=== PATIENT | female | born 1950 | race Caucasian/White ===

== ENCOUNTER → 2016-07-14 | Outpatient (CLI) | payer MEDICARE, OTHER ==
[2016-07-14 16:04] LABS: Blood Urea Nitrogen 18 mg/dL (7-17); Non-African American GFR(MDRD) >60 (>60 ml/min/1.73 sqM)
--- NOTE | 2016-07-15 08:13 | MR ---
MRI of the brain with and without contrast HISTORY: Headaches. TECHNIQUE: T1-weighted sagittal, T2, FLAIR, and diffusion axial, postcontrast T1 axial and coronal vi ews of the brain are submitted. CONTRAST: 15 cc MultiHance COMPARISON: 09/29/2011 FINDINGS: There is no evidence of acute ischemia. The ventricles, basal cisterns, and sulci overlying the co nvexities are consistent with the patient's age. There is no mass effect or enhancing mass. Craniocervical junction maintained. No evidence of cerebellopontine angle mass. On the sagittal images there does appear to be a small focal area of reduced enhancement within the p ituitary gland which is stable from the previous MRI of the pituitary gland dated 10/29/2011. Changes of chronic mild sinusitis. White matter: There are approximately 60 lesions of abnormal signal scattered throughout the white matter of both c erebral hemispheres. No enhancing lesions. No lesions perpendicular to the ventricular system. No tobin losal lesions. Largest lesion is seen within the right parietal lobe measuring 1 cm. IMPRESSION: 1. No acute intracranial process. 2. Diffuse white matter changes are nonspecific. Differential diagnosis include remote microvascular ischemia. Other demyelinating processes not excluded. Correlate clinically. 3. Tiny focal area of reduced enhancement involving the pituitary gland on the sagittal image is stab le from previous MRI suggestive of tiny microadenoma.
== END | disposition home or self-care (01) ==
LOC: RADMRIMAIN 15:28
PROVIDERS: ATTEND Ophthalmology
DX: D35.2 Benign neoplasm of pituitary gland (principal)
CPT/HCPCS: 82565; 84520; 70553; A9577

== ENCOUNTER → 2016-07-15 | Outpatient (CLI) | payer MEDICARE, OTHER ==
--- NOTE | 2016-07-15 19:16 | MR ---
EXAMINATION TYPE: MR pituitary wo/w con DATE OF EXAM: 07/15/2016 6:05 PM COMPARISON: 10/22/2011 HISTORY: Benign neoplasm of pituitary gland CONTRAST: Standard multiplanar, multisequence MRI departmental protocol utilizing 20 mL intravenous MultiHance gadolinium contrast. FINDINGS: Noted within the posterior aspect of the pituitary gland is a small filling defect which measures 2 x 3 mm and is compatible with a microadenoma. The pituitary gland is not enlarged. No additional lesions are seen. Pituitary stock is midline. Optic chiasm is within normal limits as is the suprasellar cistern. Cavernous sinus appears to be unr emarkable bilaterally. IMPRESSION: There is slight interval reduction in size of a small microadenoma of the pituitary measuring approxi mately 2 x 3 mm and previously measuring 2.6 x 3 mm
== END | disposition home or self-care (01) ==
LOC: RADMRIMAIN 17:11
PROVIDERS: ATTEND Ophthalmology
DX: D35.2 Benign neoplasm of pituitary gland (principal)
CPT/HCPCS: 70553; A9577

== ENCOUNTER → 2017-03-29 | Outpatient (CLI) | payer MEDICARE, OTHER ==
[2017-03-29 17:46] LABS: CH 29.6; CHCM 33.7; HCT 44.3 % (34.0-46.0); HDW 2.81; HGB 14.2 gm/dL (11.4-16.0); MCH 28.4 pg (25.0-35.0); MCHC 32.1 g/dL (31.0-37.0); MCV 88.6 fL (80.0-100.0); RBC 5.01 m/uL (3.80-5.40); RDW 15.1 % (11.5-15.5); WBC 9.6 k/uL (3.8-10.6)
[2017-03-29 17:55] LABS: Appearance,Urine Clear (Clear); Bilirubin,Urine Negative (Negative); Glucose,Urine (UA) Negative (Negative); Ketones,Urine Negative (Negative); Leukocyte Esterase,Urine Trace (Negative); Mucus,Urine Occasional /hpf; Nitrite,Urine Negative (Negative); PH, Urine 5.5 (5.0-8.0); Particle Count 3524; Protein,Urine Negative (Negative); RBC,Urine <1 /hpf (0-5); Specific Gravity,Urine 1.011 (1.001-1.035); Squamous Epithelial Cell,Urine 2 /hpf (0-4); UA Billing (MACRO vs. MICRO) MICRO; Urobilinogen,Urine <2.0 mg/dL (<2.0); WBC,Urine 2 /hpf (0-5)
[2017-03-29 17:56] LABS: ALT 39 U/L (9-52); AST 22 U/L (14-36); Alkaline Phosphatase 85 U/L (38-126); Anion Gap 9 mmol/L; Blood Urea Nitrogen 9 mg/dL (7-17); Calcium 9.6 mg/dL (8.4-10.2); Carbon Dioxide 28 mmol/L (22-30); Chloride 103 mmol/L (98-107); Cholesterol 196 mg/dL (<200); Glucose 98 mg/dL (74-99); HDL Cholesterol 55 mg/dL (40-60); Non-African American GFR(MDRD) >60 (>60 ml/min/1.73 sqM); Potassium 3.7 mmol/L (3.5-5.1); Sodium 140 mmol/L (137-145); Total Bilirubin 0.7 mg/dL (0.2-1.3); Total Protein 7.2 g/dL (6.3-8.2)
[2017-03-29 22:45] LABS: Hemoglobin A1C 5.8 % (4.2-6.1)
== END | disposition home or self-care (01) ==
LOC: LABWHC1 16:54
PROVIDERS: ATTEND Family Medicine
DX: Z00.01 Encounter for general adult medical examination with abnormal findings (principal)
CPT/HCPCS: 36415; 80053; 80061; 81001; 82306; 83036; 84439; 84443; 85027; 86803

== ENCOUNTER → 2018-01-12 | Outpatient (CLI) | payer MEDICARE, OTHER ==
--- NOTE | 2018-01-17 11:23 | MM ---
Reason for exam: screening (asymptomatic). Last mammogram was performed 6 months ago. History: Patient is postmenopausal. Family history of breast cancer in aunt and breast cancer in cousin at age 60. Physical Findings: A clinical breast exam by your physician is recommended on an annual basis and results should be correlated with mammographic findings. MG 3D Screening Mammo Wo Cad Bilateral CC and MLO view(s) were taken. Prior study comparison: July 04, 2017, mammogram, performed at [facility]. November 22, 2016, mammogram, performed at [facility]. There are scattered fibroglandular densities. No suspicious abnormality. No significant changes when compared with prior studies. ASSESSMENT: Negative, BI-RAD 1 RECOMMENDATION: Routine screening mammogram of both breasts in 1 year.
== END | disposition home or self-care (01) ==
LOC: RADMAMWWP 11:03
PROVIDERS: ATTEND Family Medicine
DX: Z12.31 Encounter for screening mammogram for malignant neoplasm of breast (principal)
CPT/HCPCS: 77063; 77067

== ENCOUNTER → 2019-04-01 | Outpatient (CLI) | payer MEDICARE, OTHER ==
[2019-04-01 12:44] LABS: Basophils # (A) 0.1 k/uL (0-0.2); Basophils % (A) 1 %; Eosinophils # (A) 0.2 k/uL (0-0.7); Eosinophils % (A) 3 %; HGB 13.6 gm/dL (11.4-16.0); Lymphocytes # (A) 2.4 k/uL (1.0-4.8); Lymphocytes % (A) 31 %; MCH 28.5 pg (25.0-35.0); MCHC 33.1 g/dL (31.0-37.0); MCV 86.1 fL (80.0-100.0); Monocytes # (A) 0.4 k/uL (0-1.0); Monocytes % (A) 6 %; Neutrophils # (A) 4.4 k/uL (1.3-7.7); Neutrophils % (A) 58 %; Platelet Count 237 k/uL (150-450); RBC 4.76 m/uL (3.80-5.40); RDW 14.9 % (11.5-15.5); WBC 7.6 k/uL (3.8-10.6)
[2019-04-01 19:24] LABS: Folate, Serum 6.4 ng/mL
[2019-04-01 19:32] LABS: ALT 19 U/L (8-44); AST 18 U/L (13-35); African American GFR (CKD) 102.5 (60.0-200.0); Albumin/Globulin Ratio 2.44 (1.60-3.17); Alkaline Phosphatase 88 U/L (41-126); BUN/Creat Ratio 25.71 Ratio (12.00-20.00); Bilirubin, Conjugated <0.20 mg/dL (0.20-0.40); C Reactive Protein 1.8 mg/dL (0.0-0.8); Calcium 9.3 mg/dL (8.7-10.3); Carbon Dioxide 27.8 mmol/L (21.6-31.8); Chloride 107 mmol/L (96-109); Globulin 1.8 g/dL (1.6-3.3); Glucose 102 mg/dL (70-110); Potassium 4.4 mmol/L (3.5-5.5); Sodium 141 mmol/L (135-145); Total Bilirubin 0.4 mg/dL (0.3-1.2); Total Protein 6.2 g/dL (6.2-8.2)
== END | disposition home or self-care (01) ==
LOC: LABWHC1 11:15
PROVIDERS: ATTEND Clinical Nurse Specialist Psychiatric/Mental Health
DX: F32.9 Major depressive disorder, single episode, unspecified (principal)
CPT/HCPCS: 36415; 80053; 82248; 82746; 84439; 84443; 84479; 85025; 86140

== ENCOUNTER → 2019-12-09 | Outpatient (CLI) | payer MEDICARE, OTHER ==
--- NOTE | 2019-12-09 11:25 | BD ---
EXAMINATION TYPE: Axial Bone Density DATE OF EXAM: 12/09/2019 COMPARISON: NONE CLINICAL HISTORY: Postmenopausal female. Nuclear Medicine Study in the last 2 weeks: NO Barium Study in the last week: NO : NO Height: 5 FT 3 1/2 IN Weight: 217 FRAX RISK QUESTIONS: Alcohol (3 or more units per day): NO Family History (Parent hip fracture): NO Glucocorticoids (More than 3mos): NO (Ex: prednisone, prednisolone, methylprednisolone, dexamethasone, and hydrocortisone). History of Fracture in Adulthood: NO Secondary Osteoporosis: 1. Type 1 Diabetes: NO 2. Hyperthyroidism: NO 3. Menopause before 45: NO 4. Malnutrition: NO 5. Chronic liver disease: NO Rheumatoid Arthritis: NO Current Tobacco Use: NO RISK FACTORS HISTORY OF: Active: YES Postmenopausal woman: AFTER 44 MEDICATIONS: Additional Medications: BLOOD PRESSURE MEDS, ANTIACID, ANTI DEPRESSANTS, Additional History: EXAM MEASUREMENTS: Bone mineral densitometry was performed using the [employer]iHeal System. Bone mineral density as measured about the Lumbar spine is: ----- L1-L4(G/cm2): 1.425 T Score Values are as follows: ----- L2: 2.2 ----- L3: 2.0 ----- L4: 1.8 ----- L1-L4: 2.0 BASELINE Bone mineral density about the R hip (g/cm2): 0.965 Bone mineral density about the L hip (g/cm2): 1.063 T Score values are as follows: -----R Neck: -0.5 -----L Neck: 0.2 -----R Total: 0.3 -----L Total: 0.8 BASELINE IMPRESSION: Normal (Values between +1 and -1 indicate normal bone mass). Consider repeating this study in 5 year s or sooner if there is some new clinical indication. NOTE: T-SCORE=SD OF THE YOUNG ADULT MEAN.
== END | disposition home or self-care (01) ==
LOC: RADBDWWP 08:04
PROVIDERS: ATTEND Family Medicine
DX: Z78.0 Asymptomatic menopausal state (principal)
CPT/HCPCS: 77080

== ENCOUNTER → 2020-09-17 | Outpatient (CLI) | payer MEDICARE, OTHER ==
--- NOTE | 2020-09-21 09:58 | MM ---
Reason for exam: screening (asymptomatic). Last mammogram was performed 2 years and 8 months ago. History: Patient is postmenopausal. Family history of breast cancer in aunt and breast cancer in cousin at age 60. Physical Findings: A clinical breast exam by your physician is recommended on an annual basis and results should be correlated with mammographic findings. MG 3D Screening Mammo W/Cad Bilateral CC and MLO view(s) were taken. Prior study comparison: January 12, 2018, bilateral MG 3d screening mammo wo cad. July 04, 2017, mammogram, performed at [facility]. There are scattered fibroglandular densities. No significant changes when compared with prior studies. ASSESSMENT: Negative, BI-RAD 1 RECOMMENDATION: Routine screening mammogram of both breasts in 1 year.
== END | disposition home or self-care (01) ==
LOC: RADMAMWWP 10:10
PROVIDERS: ATTEND Family Medicine
DX: Z12.31 Encounter for screening mammogram for malignant neoplasm of breast (principal); Z78.0 Asymptomatic menopausal state; Z80.3 Family history of malignant neoplasm of breast
CPT/HCPCS: 77063; 77067

== ENCOUNTER 2021-09-23 06:08 | Day surgery (SDC) | payer MEDICARE, OTHER ==
[~2021-09-23 06:08] MED LIST: ACETAMINOPHEN TAB 500 MG TAB PO PRN; DEXAMETHASONE SOD PHOSPHATE 4 MG/ML 1 ML VIAL IV ONE; GABAPENTIN 300 MG CAP PO PRN; LACTATED RINGERS 1,000 ML IV SCH; LIDOCAINE 1% (10MG/ML) FOR IV START INTRADERMA PRN; MELOXICAM 7.5 MG TAB PO PRN; MIDAZOLAM 2 MG/2 ML VIAL IV PRN; ONDANSETRON 4 MG/2 ML VIAL IVP PRN; TRANEXAMIC ACID IN NACL,ISO-OS 1,000 MG in SALINE 1 100ML.BAG IVPB PRN
[2021-09-23] MEDS ORDERED: HYDROmorphone 0.5 MG/0.5 ML SYRINGE IVP PRN ×4 (07:00→10:03)
[2021-09-23] MEDS ORDERED: fentaNYL (PF) 50 MCG/ML 2 ML AMP IVP PRN (07:00)
[2021-09-23] MEDS ORDERED: METOCLOPRAMIDE 5 MG/ML 2 ML VIAL IVP PRN (07:00)
[2021-09-23] MEDS ORDERED: MIDAZOLAM 2 MG/2 ML VIAL IVP ONE (07:26)
[2021-09-23] MEDS ORDERED: fentaNYL (PF) 50 MCG/ML 2 ML AMP IVP ONE (07:26)
[2021-09-23] MEDS ORDERED: MIDAZOLAM 2 MG/2 ML VIAL ONE (08:01)
[2021-09-23] MEDS ORDERED: PROPOFOL 10 MG/ML 20 ML VIAL IV ONE (08:01)
[2021-09-23] MEDS ORDERED: ROPIVACAINE 5 MG/ML 30 ML VIAL ONE (08:01)
[2021-09-23] MEDS ORDERED: LIDOCAINE 1% INJ 10MG/ML (20 ML MDV) ONE (08:01)
[2021-09-23] MEDS ORDERED: fentaNYL (PF) 50 MCG/ML 2 ML AMP ONE (08:01)
[2021-09-23] MEDS ORDERED: TRANEXAMIC ACID IN NACL,ISO-OS 1,000 MG/100 ML BAG ONE (08:01)
[2021-09-23] MEDS ORDERED: SODIUM CHLORIDE 0.9% (PF) 10 ML VIAL ONE (08:01)
[2021-09-23] MEDS ORDERED: ceFAZolin 3,000 MG in SODIUM CHLORIDE 0.9% IRRIGATIO 3,000 ML IRRIGATION ONE (08:38)
[2021-09-23] MEDS ORDERED: LACTATED RINGERS 1,000 ML IV ONE (09:23)
[2021-09-23] MEDS ORDERED: ONDANSETRON 4 MG/2 ML VIAL IVP PRN (10:03)
[2021-09-23] MEDS ORDERED: NA PHOS,M-B/NA PHOS,DI-BA 133 ML ENEMA RECTAL PRN (10:03)
[2021-09-23] MEDS ORDERED: ACETAMINOPHEN TAB 325 MG TAB PO PRN (10:03)
[2021-09-23] MEDS ORDERED: bisacodyL 10 MG SUPP RECTAL PRN (10:03)
[2021-09-23] MEDS ORDERED: diazePAM 5 MG TAB PO PRN (10:03)
[2021-09-23] MEDS ORDERED: NALOXONE 0.4 MG/ML 1 ML VIAL IV PRN (10:03)
[2021-09-23] MEDS ORDERED: MAGNESIUM HYDROXIDE 2,400 MG/10 ML CUP PO PRN (10:03)
[2021-09-23] MEDS ORDERED: traMADol 50 MG TAB PO PRN (10:03)
--- NOTE | 2021-09-23 10:05 | P.ANPRN ---
Procedure Note - Anesthesia - Nerve Block Performed Left Adductor Canal Infusion Time Out Performed: Yes (725) Date of Procedure: 09/23/21 Procedure Start Time: 07:26 Procedure Stop Time: 07:31 Location of Patient: PreOp Indication: Acute Post-Operative Pain, Requested by Surgeon Specifically requested for management of pain by DrTherese: Atul Gonzales Sedation Type: Sedate with meaningful contact maintained Preparation: Sterile Prep, Sterile Dressing Position: Supine Catheter Depth at Skin (cm): 8 Catheter: Indwelling Needle Types: Pajunk Needle Gauge: 18 Ultrasound used to visualize needle placement: Yes Ultrasound used to observe medication spread: Yes Injectate: 0.5% Ropivacaine (see comment for volume) (15cc + 5cc nacl pf) Blood Aspirated: No Pain Paresthesia on Injection Noted: No Resistance on Injection: Normal Image Stored and Saved: Yes Events: Uneventful and Well Tolerated Left iPack Single Time Out Performed: Yes (725) Date of Procedure: 09/23/21 Procedure Start Time: 07:32 Procedure Stop Time: 07:38 Location of Patient: PreOp Indication: Acute Post-Operative Pain, Requested by Surgeon Specifically requested for management of pain by Dr.: Atul Gonzales Sedation Type: Sedate with meaningful contact maintained Preparation: Sterile Prep Position: Supine Catheter: None Needle Types: Pajunk Needle Gauge: 21 (4in) Ultrasound used to visualize needle placement: Yes Ultrasound used to observe medication spread: Yes Injectate: 0.5% Ropivacaine (see comment for volume) (15cc + 5cc nacl pf) Blood Aspirated: No Pain Paresthesia on Injection Noted: No Resistance on Injection: Normal Image Stored and Saved: Yes Events: Uneventful and Well Tolerated
[2021-09-23] MEDS ORDERED: HYDROcodone/APAP 7.5-325MG 1 EACH TAB PO PRN (10:06)
[2021-09-23] MEDS ORDERED: ROPIVACAINE 0.2%-NS ON-Q PUMP 1,090 MG, EMPTY PAIN BALL 1 EACH MISCELLANE PRN (11:17)
[2021-09-23] MEDS ORDERED: ROPIVACAINE 0.2%-NS ON-Q PUMP 2 MG/ML EACH MISCELLANE ONE (11:17)
--- NOTE | 2021-09-23 11:24 | XR ---
Left knee Limited HISTORY: Status post left knee arthroplasty 2 views the left knee Patient is status post left knee arthroplasty. There is anatomic alignment. Lucencies present within the soft tissues. There is soft tissue swelling. IMPRESSION: Orthopedic follow-up.
--- NOTE | 2021-09-23 11:38 | OP ---
OPERATIVE REPORT DATE OF PROCEDURE: 09/23/2021 SURGEON: Atul Gonzales M.D. FOREST AIDE: Jose Mejia PA-C PREOPERATIVE DIAGNOSIS: Left knee osteoarthrosis. POSTOPERATIVE DIAGNOSIS: Left knee osteoarthrosis. OPERATION: Left total knee arthroplasty. ANESTHESIA: Spinal with sedation. ESTIMATED BLOOD LOSS: 100 mL. TOURNIQUET: Tourniquet time was 52 minutes at 250 mmHg. COMPLICATIONS: None apparent. DRAINS: None. DISPOSITION: Post-Anesthesia Care Unit. INDICATIONS: Louann Hurtado is a very pleasant 71-year-old female with longstanding history of left knee pain. History and physical examination are consistent with advanced left knee osteoarthrosis. She has been through significant operative management up to this point. Further treatment options were discussed, and she has decided to go forward with left total knee arthroplasty. The risks of the procedure were discussed with her in detail. These risks include but are not limited to risk of infection, nerve damage, bleeding, pain, and a small risk of deep vein thrombosis which could lead to fatal pulmonary embolism. There is also risk of loosening of the implant which could require revision operation. The patient understands these risks. All of her questions were answered to her satisfaction. Appropriate informed consent was obtained. DESCRIPTION OF THE PROCEDURE: The patient was identified in the preoperative holding area. Surgical site was marked by both the patient and myself. She was given 2 grams of Ancef IV for prophylactic purposes. She was then transferred to the operative suite. She was placed supine on the operating room table. Spinal anesthetic was then administered and dosed per the anesthesia department without apparent complication. Examination under anesthesia was then performed. The patient was 2 to 3 degrees shy of full extension. She had 100 degrees of flexion, and the medial collateral ligament, lateral collateral ligament and posterior cruciate ligaments were stable. Tourniquet was then placed high on the left upper thigh, well padded in preparation for surgery. The patient's left lower extremity was then prepped and draped in the usual sterile fashion. A standard surgical pause was undertaken to ensure that we were operating on the correct site and that appropriate preoperative antibiotics had been given. All staff in the room were in agreement and we proceeded. The outlines of the patella were marked with a surgical pen. A planned 12 cm vertical incision centered over the patella was marked with a surgical pen. The leg was then exsanguinated with an Esmarch dressing. The knee was then flexed and tourniquet was inflated to 250 mmHg. The total tourniquet time for the procedure was 52 minutes. Incision was then made with a 10 blade scalpel. Dissection was carried down sharply to the overlying fascia. Great care was taken to minimize the skin flaps. The knee was then exposed using a standard medial parapatellar approach. A small cuff of quadriceps tendon was then left for suturing. She was in a bit of varus preoperatively. A standard medial release was then made. The superficial medial collateral ligament was dissected off of the bone and around to the posterior aspect of the proximal tibia. The medial meniscus was then excised as well. The lateral meniscus was also released anteriorly. The leg was then externally rotated. The patella was everted. The knee was flexed. Retractors were then placed to protect the collateral ligaments. I then proceeded to remove the infrapatellar fat pad. This was excised sharply tangentially with the fibers of the patellar tendon. I then proceeded to remove the peripheral osteophytes. This was done with a rongeur. I then proceeded with the distal femoral resection. She did have near-full extension. A planned 9 mm resection was then done. Femoral canal was then entered in the midline of the femur approximately 10 mm anterior to the origin of the posterior cruciate ligament. The taco was then advanced down the center of the femur and placed intramedullary. Based on the preoperative radiographs, the angle between the anatomic and mechanical axis of the femur was approximately 4 to 5 degrees. The valgus angle of the distal femoral cutting guide was then set at 4 degrees for the right knee. The distal femoral cutting guide was then advanced over the intramedullary taco. This was seated firmly against the femur. I then, as mentioned, planned to take 9 mm off the distal femur. The cutting block was then secured onto the femur with pins. The jig was then removed. The distal femoral cut was made through the slot of the block. The pins were then removed. The distal femoral cutting block was removed. The accuracy of the distal femoral cut was checked with two flat bars. I then proceeded with femoral sizing. The posterior referencing sizing guide was held firmly against the resected distal surface of the femur. The posterior condyles were resting on the posterior plane of the guide. The sizing stylus was then placed onto the anterior femur. The size was measured as a size 8. I then assessed for femoral rotation. The plan was for 3 degrees of external rotation. Three degrees of external rotation was placed onto the jig. These holes were then marked. I then confirmed the rotation by three separate methods. This done using epicondylar axis as well as Whitesides line and posterior referencing. It was deemed that the external rotation was proper. I then went forward with placing the femoral cutting block. This was placed over the previously placed pin holes. The Navid wing was then placed onto the anterior slots to ensure that we would not notch the anterior femur with the anterior femoral cut. I then proceeded with the anterior femoral cut. This was flush with the anterior cortex of the femur. The posterior cuts were then made followed by the anterior chamfer cut and then the posterior chamfer cut. The cutting block was then removed. Throughout the resection, the collateral ligaments were protected with retractors. I then placed a trial size 8 femur. It was slightly wide, but the narrow fit very nicely and it fit flush with the distal end of the femur. The drill holes were then made. I then proceeded with the with the tibial cut. I planned for a cruciate retaining- knee. The guide was placed and set for varus, valgus and for slope. The height was set for an approximate 2 mm resection from the medial tibial plateau, which was the lower side. I was happy with the alignment and amount of resection. The cutting block was then pinned to the proximal tibia. The alignment taco was removed and the proximal tibia was resected with a reciprocating saw. Again this was done with retractors protecting the collateral ligaments as well as the posterior cruciate ligament. I then proceeded to evaluate the flexion and extension gaps. A 10 mm block was then placed. The flexion and extension gaps were equal. I then proceeded with resection of posterior osteophytes. She had fairly extensive posterior osteophytes. This was done using a curved osteotome. This resected the posterior osteophytes, and posterior capsule stripping was done off the posterior aspect of the femur at this time. The osteophytes were then removed. I then proceeded with resection of the patella. The thickness of patella was measured using the caliper. The thickness was 24 mm. The thickness of the anticipated patellar dome was taken into account. Resection was then performed and confirmed to be equal in 4 quadrants using the caliper. Approximately 14 mm of bone remained after the resection. A 32 x 8.5 standard patellar trial was then placed. The holes were drilled and the trial was then placed. I then proceeded to size the tibial plate. A size F tibial plate fit very nicely. I then placed the trial femur, the tibial tray and the patellar button. A 10 mm trial tibial insert was also placed. The components fit very nicely. She had full extension and flexion. The extension and flexion gaps were equal and stable to both varus and valgus stress. The patella tracked appropriately. The tibial tray rotation was then marked with a Bovie. This was externally rotated properly. I then proceeded with tibial preparation. I first drilled the femoral holes and removed the femoral component. The tibial tray was then set for proper external rotation as well as mediolateral placement onto the tibia. It was then pinned into place. I then proceeded with punching the keel. I then decided to proceed with cementing of all of our components. The knee was thoroughly irrigated with sterile saline solution via pulse lavage. The lateral geniculate artery was identified and cauterized. All blood was removed from the bone of the tibia, femur and patella with pulse lavage. I then proceeded with cementing. Two packs of antibiotic bone cement were prepared on the back table by the rn medical surgical. I then proceeded with cementing of the tibia first. Cement was impacted in the keel as well as deeply seated into the bone. A second coat of cement was then placed. The tibia was then impacted into place. Excess cement was removed with [place]'s and Joker's. I then proceeded with cementing of the femoral component. The femoral component was also cemented using standard technique. Excess cement was removed. A 10 mm trial insert was then placed into the knee. It was brought into full extension with a constant axial load placed until the cement had hardened. The patellar component was then cemented. This was held firmly with a compression device until the cement had dried. When the cement had dried, the knee was taken out of extension. All excess cement was removed from around the prosthesis. I then trialed the knee with a 10 mm insert. Flexion and extension gaps were appropriate. The knee was stable. It came into full extension. I decided to go forward with a 10 mm medial-congruent cross-linked cruciate- retaining tibial insert. Polyethylene was then placed onto the tibial tray and locked into place. The knee was then reduced. The knee was again further irrigated with sterile saline solution with antibiotic added. The tourniquet was then deflated. The total tourniquet time for the procedure was 52 minutes at 250 mmHg. Final components were a Kavon Persona size 8 narrow cruciate-retaining femoral component, a size F tibial tray, a 10 mm medial- congruent cruciate-retaining polyethylene insert, and a 32 x 8.5 mm patella. I then proceeded with closure. Again the knee was thoroughly irrigated. The quadriceps tendon and the medial retinaculum were reapproximated with #2 Ethibond suture. The extensor mechanism was then closed with a running #2 Quill suture. Subcutaneous tissues were closed with 2-0 Vicryl interrupted suture. The skin was closed with a running 3-0 Quill suture. Dermabond was applied to the incision. Sterile compressive dressing was then applied. All sponge and needle counts were deemed correct prior to closure. The patient tolerated procedure without apparent complication. She was transferred to the recovery room in stable condition. MMODL / IJN: [id number] /
[2021-09-23] MEDS: LACTATED RINGERS 1,000 ML IV SCH ×2 (11:54→21:56)
[2021-09-23] MEDS: HYDROcodone/APAP 7.5-325MG 1 EACH TAB PO PRN ×2 (15:09→20:28)
[2021-09-23] MEDS: ASPIRIN 81 MG PO SCH (20:28)
[2021-09-23] MEDS ORDERED: SENNOSIDES-DOCUSATE SODIUM 1 EACH TAB PO SCH (21:00)
[2021-09-24] MEDS: HYDROcodone/APAP 7.5-325MG 1 EACH TAB PO PRN ×3 (01:28→11:03)
[2021-09-24] MEDS: LACTATED RINGERS 1,000 ML IV SCH (06:46)
--- NOTE | 2021-09-24 07:42 | P.PN ---
Progress Note - Text Progress Note Date: 09/24/21 (823) Anesthesiology Postop day 1 status post total knee arthroplasty with adductor canal catheter. Patient doing well. VAS 4 out of 10 out of 10. Gross strength intact in lower extremity. Afebrile. Denies alterations in sensorium. Catheter site intact. Heart regular rate Lungs nonlabored Abdomen nondistended Assessment: Postop day 1 status post total knee arthroplasty with adductor canal catheter Plan: All questions answered. Maintain catheter 2 more days with patient rem oval at home. Instructions were given at discharge.
[2021-09-24] MEDS: ASPIRIN 81 MG PO SCH (07:48)
[2021-09-24 07:50] VITALS: BP 134/78; PULSE 91; RESP 18; TEMP 97.9
--- NOTE | 2021-09-24 08:35 | P.CONS ---
History of Present Illness - History of Present Illness This is a pleasant 71 years old female with past medical history of GERD/Re flux, Hypertension, Osteoarthritis Patient with severe osteoarthritis and she was admitted for left total knee arthroplasty. Patient was sitting in bed comfortable, she started for breakfast, she has minimal pain in her left knee surgery. She denies bowel movement or passing gases. No chest pain or dyspnea. No abdominal pain There is no labs and the system during this admission, labs from last month showing WBCs 5.4, hemoglobin 13.6, platelets 267 which is normal for all of them Sodium 142, creatinine 0.6. Most of liver enzymes and basic metabolic panel are negative Urine analysis is not suspicious for infection Review of Systems CONSTITUTIONAL: No fever, no malaise, no fatigue. HEENT: No recent visual problems or hearing problems. Denied any sore throat. CARDIOVASCULAR: No orthopnea, PND, no palpitations, no syncope. PULMONARY: No shortness of breath, no cough, no hemoptysis. GASTROINTESTINAL: No diarrhea, no nausea, no vomiting, no abdominal pain. Normoactive bowel sounds. NEUROLOGICAL: No headaches, no weakness, no numbness. HEMATOLOGICAL: Denies any bleeding or petechiae. GENITOURINARY: Denies any burning micturition, frequency, or urgency. MUSCULOSKELETAL/RHEUMATOLOGICAL: Denies any joint pain, swelling, or any muscle pain. ENDOCRINE: Denies any polyuria or polydipsia. Past Medical History Past Medical History: Eye Disorder, GERD/Reflux, Hypertension, Osteoarthritis (OA) Additional Past Medical History / Comment(s): GLAUCOMA. History of Any Multi-Drug Resistant Organisms: None Reported Past Surgical History: Bladder Surgery, Cholecystectomy, Tonsillectomy, Tubal Ligation Additional Past Surgical History / Comment(s): D & C. BLADDER LIFT. BILATERAL CATARACTS/LENS, TLK 09/23/21 Past Anesthesia/Blood Transfusion Reactions: Motion Sickness Additional Past Anesthesia/Blood Transfusion Reaction / Comm: LONG ACTING SPINAL ( SHE COULD NOT WALK FOR A DAY AND HALF). Past Psychological History: Depression Additional Psychological History / Comment(s): IN April, Smoking Status: Never smoker Past Alcohol Use History: Rare Past Drug Use History: None Reported - Past Family History Mother Family Medical History: No Reported History Medications and Allergies Home Medications Medication Instructions Recorded Confirmed Type Acetaminophen [Tylenol] 500 mg PO Q6H PRN 09/20/21 09/23/21 History Ascorbic Acid [Vitamin C] 1 tab PO DAILY 09/20/21 09/23/21 History Calcium Carb/Mag Ox/Zinc Sulf 1 tab PO DAILY 09/20/21 09/23/21 History [Rgm-Ndn-Mbxd 334-134-5 mg Tab] Cholecalciferol [Vitamin D3 (25 1 tab PO DAILY 09/20/21 09/23/21 History Mcg = 1000 Iu)] DULoxetine HCL [Cymbalta] 30 mg PO QAM 09/20/21 09/23/21 History DULoxetine HCL [Cymbalta] 60 mg PO QAM 09/20/21 09/23/21 History Furosemide [Lasix] 20 mg PO QAM 09/20/21 09/23/21 History Latanoprost Ophth [Xalatan 0.005%] 1 drop BOTH EYES BID 09/20/21 09/23/21 History Losartan Potassium 100 mg PO QAM 09/20/21 09/23/21 History Omeprazole 20 mg PO QAM 09/20/21 09/23/21 History Potassium Chloride ER [K-Dur 10] 10 meq PO QAM 09/20/21 09/23/21 History Zinc 1 tab PO DAILY 09/20/21 09/23/21 History amLODIPine [Norvasc] 7.5 mg PO QAM 09/20/21 09/23/21 History buPROPion HCL [buPROPion HCL SR] 200 mg PO QAM 09/20/21 09/23/21 History hydrOXYzine pamoate [hydrOXYzine 25 mg PO HS 09/20/21 09/23/21 History PAMOATE] Allergies Allergy/AdvReac Type Severity Reaction Status Date / Time No Known Allergies Allergy Verified 09/23/21 06:42 Physical Exam Vitals: Vital Signs Temp Pulse Pulse Resp BP Pulse Ox 09/24/21 07:14 97.9 F 91 18 134/78 97 09/24/21 00:15 98.4 F 87 16 109/68 94 L 09/23/21 19:12 98.0 F 89 14 112/70 97 09/23/21 13:45 90 120/70 94 L 09/23/21 13:30 89 122/71 97 09/23/21 13:15 90 126/71 95 09/23/21 13:00 87 132/76 98 04/07/22 12:45 86 128/72 98 09/23/21 12:30 83 139/75 95 09/23/21 12:15 91 130/71 89 L 09/23/21 12:00 97.4 F L 81 136/79 100 09/23/21 11:18 72 16 125/69 98 09/23/21 11:03 97.1 F L 76 15 132/71 97 09/23/21 10:48 75 16 129/65 96 09/23/21 10:33 73 16 128/72 94 L 09/23/21 10:18 97.1 F L 72 16 127/72 94 L 09/23/21 10:03 96.8 F L 77 16 114/67 94 L Intake and Output 09/23/21 09/24/21 09/24/21 22:59 06:59 14:59 Other: Voiding Method Toilet # Voids 1 GENERAL: The patient is alert and oriented x3, not in any acute distress. Well developed, well nourished. HEENT: Pupils are round and equally reacting to light. EOMI. No scleral icterus. No conjunctival pallor. Normocephalic, atraumatic. No pharyngeal erythema. No thyromegaly. CARDIOVASCULAR: S1 and S2 present. No murmurs, rubs, or gallops. PULMONARY: Chest is clear to auscultation, no wheezing or crackles. ABDOMEN: Soft, nontender, nondistended, normoactive bowel sounds. No palpable organomegaly. MUSCULOSKELETAL: No joint swelling or deformity. -EXTREMITIES: No cyanosis, clubbing, or pedal edema. Left knee in a dressing, rest of exam is deferred to surgery primary team NEUROLOGICAL: Gross neurological examination did not reveal any focal deficits. SKIN: No rashes. No petechiae Assessment and Plan Assessment: Severe osteoarthritis status post left total knee arthroplasty Hypertension History of GERD Plan: This is a pleasant 71 years old female who presents for left total knee arthroplasty Continue with pain management and DVT prophylaxis as per primary team Currently blood pressure is controlled continue with the same home medication Labs and medication were reviewed.. Continue same treatment. Continue with symptomatic treatment. Resume home medication. Monitor lytes and vitals. DVT and GI prophylaxis. Further recommendations depends on the clinical course of the patient We recommend patient follow up with PCP in one week after discharge, patient was instructed with the same
[2021-09-24] MEDS ORDERED: buPROPion SR 100 MG TABLET.ER PO SCH (09:00)
[2021-09-24] MEDS ORDERED: amLODIPine 2.5 MG TAB PO SCH (09:00)
[2021-09-24] MEDS ORDERED: DULoxetine HCL 60 MG CAPSULE.DR PO SCH (09:00)
[2021-09-24] MEDS ORDERED: DULoxetine HCL 30 MG CAPSULE.DR PO SCH (09:00)
[2021-09-24] MEDS ORDERED: FUROSEMIDE 20 MG TAB PO SCH (09:00)
[2021-09-24] MEDS ORDERED: LOSARTAN 50 MG TAB PO SCH (09:00)
[2021-09-24] MEDS ORDERED: LATANOPROST 0.005% OPHTH DROPS 2.5 ML BTL BOTH EYES SCH (09:00)
[2021-09-24] MEDS ORDERED: ASCORBIC ACID 500 MG TAB PO SCH (09:00)
[2021-09-24] MEDS ORDERED: CHOLECALCIFEROL 25 MCG (1000 IU) TABLET PO SCH (09:00)
[2021-09-24 10:31] LABS: Basophils # (A) 0.05 X 10*3/uL (0.00-0.10); Basophils % (A) 0.6 %; Eosinophils # (A) 0.03 X 10*3/uL (0.04-0.35); Eosinophils % (A) 0.3 %; HCT 37.2 % (37.2-46.3); HGB 11.5 g/dL (12.0-15.0); Immature Grans, Automated 0.2 %; Lymphocytes # (A) 2.13 X 10*3/uL (0.90-5.00); Lymphocytes % (A) 24.5 %; MCH 27.3 pg (27.0-32.0); MCHC 30.9 g/dL (32.0-37.0); MCV 88.4 fL (80.0-97.0); Mean Platelet Volume 12.1 fL (9.5-12.2); Monocytes # (A) 1.17 X 10*3/uL (0.20-1.00); Monocytes % (A) 13.4 %; NRBC Per 100 WBC 0 /100 WBCS (0.0-0.0); Neutrophils # (A) 5.31 X 10*3/uL (1.80-7.70); Platelet Count 197 X 10*3/uL (140-440); RBC 4.21 X 10*6/uL (4.10-5.20); RDW 14.9 % (11.5-14.5); WBC 8.71 X 10*3/uL (4.50-10.00)
--- NOTE | 2021-09-24 11:28 | P.DS ---
Providers Expected date of discharge: 09/24/21 Attending physician: Atul Gonzales Consults: 09/23/21 10:03 Consult Physician Routine Consulting Provider: Aisha Rivera Consult Reason/Comments: post op medical management Do you want consulting provider notified?: Yes Primary care physician: Denisha Brand - Discharge Diagnosis(es) (1) Osteoarthritis of left knee Patient was admitted to the OR on 09/23/21 to undergo a left total knee arthroplasty. She had failed conservative measures as an outpatient and desired to proceed with elective surgery after given informed consent. She underwent the above procedure which she tolerated well without complication. Postoperative hospital course has remained without complication. On day of discharge she is afebrile, vital signs stable, labs within acceptable ranges, tolerating by mouth meds and diet, voiding without difficulty, positive flatus, denies abdominal pain or calf pain, pain is controlled on oral pain medication and has no new complaints. Wound is benign, neurovascular status is intact, calf is soft and nontender, abdomen soft and nontender. Review of systems is negative for numbness, tingling, fever, chills, chest pain, shortness of breath, nausea, vomiting, dizziness, headaches, slurred speech or other. Current Visit: Yes Status: Acute (2) Status post total left knee replacement Current Visit: Yes Status: Acute Procedures: Left TKA Patient Condition at Discharge: Good Plan - Discharge Summary Discharge Rx Participant: No New Discharge Prescriptions: New Aspirin [Adult Low Dose Aspirin EC] 81 mg PO BID #60 tab Docusate [Colace] 100 mg PO BID #60 capsule HYDROcodone/APAP 7.5-325MG [[place] 7.5-325] 1 - 2 each PO Q6HR PRN #42 tab PRN Reason: Pain No Action hydrOXYzine pamoate [hydrOXYzine PAMOATE] 25 mg PO HS Furosemide [Lasix] 20 mg PO QAM Omeprazole 20 mg PO QAM Cholecalciferol [Vitamin D3 (25 Mcg = 1000 Iu)] 1 tab PO DAILY Calcium Carb/Mag Ox/Zinc Sulf [Ozf-Lzp-Idrm 334-134-5 mg Tab] 1 tab PO DAILY Acetaminophen [Tylenol] 500 mg PO Q6H PRN PRN Reason: Pain Zinc 1 tab PO DAILY Potassium Chloride ER [K-Dur 10] 10 meq PO QAM Latanoprost Ophth [Xalatan 0.005%] 1 drop BOTH EYES BID DULoxetine HCL [Cymbalta] 30 mg PO QAM Ascorbic Acid [Vitamin C] 1 tab PO DAILY amLODIPine [Norvasc] 7.5 mg PO QAM buPROPion HCL [buPROPion HCL SR] 200 mg PO QAM DULoxetine HCL [Cymbalta] 60 mg PO QAM Losartan Potassium 100 mg PO QAM Discharge Medication List Acetaminophen [Tylenol] 500 mg PO Q6H PRN 09/20/21 [History] Ascorbic Acid [Vitamin C] 1 tab PO DAILY 09/20/21 [History] Calcium Carb/Mag Ox/Zinc Sulf [Hhk-Ogi-Vsmc 334-134-5 mg Tab] 1 tab PO DAILY 09/20/21 [History] Cholecalciferol [Vitamin D3 (25 Mcg = 1000 Iu)] 1 tab PO DAILY 09/20/21 [History] DULoxetine HCL [Cymbalta] 30 mg PO QAM 09/20/21 [History] DULoxetine HCL [Cymbalta] 60 mg PO QAM 09/20/21 [History] Furosemide [Lasix] 20 mg PO QAM 09/20/21 [History] Latanoprost Ophth [Xalatan 0.005%] 1 drop BOTH EYES BID 09/20/21 [History] Losartan Potassium 100 mg PO QAM 09/20/21 [History] Omeprazole 20 mg PO QAM 09/20/21 [History] Potassium Chloride ER [K-Dur 10] 10 meq PO QAM 09/20/21 [History] Zinc 1 tab PO DAILY 09/20/21 [History] amLODIPine [Norvasc] 7.5 mg PO QAM 09/20/21 [History] buPROPion HCL [buPROPion HCL SR] 200 mg PO QAM 09/20/21 [History] hydrOXYzine pamoate [hydrOXYzine PAMOATE] 25 mg PO HS 09/20/21 [History] Aspirin [Adult Low Dose Aspirin EC] 81 mg PO BID #60 tab 09/24/21 [Rx] Docusate [Colace] 100 mg PO BID #60 capsule 09/24/21 [Rx] HYDROcodone/APAP 7.5-325MG [[place] 7.5-325] 1 - 2 each PO Q6HR PRN #42 tab 09/24/21 [Rx] Follow up Appointment(s)/Referral(s): Denisha Brand III, MD [Primary Care Provider] - 09/29/21 2:00 pm [facility], [NON-STAFF] - ([facility] will call you to schedule your in home physical therapy visits. ) Atul Gonzales MD [STAFF PHYSICIAN] - 10/01/21 1:00 pm Activity/Diet/Wound Care/Special Instructions: Weight bear as tolerated with walker at all times May shower after 3 days if no bleeding Keep wound clean and dry Take meds as directed F/U with Dr. Gonzales in office Discharge Disposition: HOME WITH HOME HEALTH SERVICES
[2021-09-24] MEDS ORDERED: MULTIVITAMINS, THERA 1 EACH TAB PO SCH (12:00)
[2021-09-24] MEDS ORDERED: hydrOXYzine pamoate 25 MG CAP PO SCH (21:00)
== END 2021-09-24 13:17 | disposition home health service (06) ==
LOC: OR 06:08 → 4SSUR 10:03 → OR 09-24 13:17
PROVIDERS: ATTEND Orthopaedic Surgery Sports Medicine
DX: M19.91 Primary osteoarthritis, unspecified site (principal); I10 Essential (primary) hypertension; K21.9 Gastro-esophageal reflux disease without esophagitis; Z79.899 Other long term (current) drug therapy
CPT/HCPCS: 27447; 97161; 64999; 64448; 76942; 85025; 88300; 73560; C1776; C1713; J2250; J1100; S0106; J0690 ×2; J2405; J2001; J3010; J2795 ×2; J2704

== ENCOUNTER → 2021-12-13 | Outpatient (CLI) | payer MEDICARE, OTHER ==
--- NOTE | 2021-12-14 14:37 | MM ---
Reason for Exam: Screening (asymptomatic). Last mammogram was performed 1 year(s) and 2 month(s) ago. Patient History: Menarche at age 12. Postmenopausal. Maternal cousin had breast cancer, age 60. Maternal aunt had breast cancer, age 60. Risk Values: Florencia 5 year model risk: 1.3%. NCI Lifetime model risk: 3.3%. Prior Study Comparison: 07/04/2017 Screening Mammogram, [facility]. 01/12/2018 Bilateral Screening Mammogram, [facility]. 09/17/2020 Bilateral Screening Mammogram, [facility]. Tissue Density: There are scattered fibroglandular densities. Findings: Analyzed By CAD. No suspicious groups of microcalcifications, spiculated or lobular masses, architectural distortion or other secondary signs of malignancy are mammographically apparent. Overall Assessment: Benign, BI-RAD 2 Management: Screening Mammogram of both breasts in 1 year. A negative mammogram report should not preclude additional follow up of suspicious palpable abnormalities. Patient should continue monthly self breast exam. A clinical breast exam by your physician is recommended on an annual basis and results should be correlated with mammographic findings. Electronically signed and approved by: Guerrero Miller D.O. Radiologis
== END | disposition home or self-care (01) ==
LOC: RADMAMWWP 13:17
PROVIDERS: ATTEND Family Medicine
DX: Z12.31 Encounter for screening mammogram for malignant neoplasm of breast (principal)
CPT/HCPCS: 77063; 77067

== ENCOUNTER → 2022-12-14 | Outpatient (CLI) | payer MEDICARE, OTHER ==
--- NOTE | 2022-12-14 15:25 | MM ---
Reason for Exam: Screening (asymptomatic). Last screening mammogram was performed 12 month(s) ago. Patient History: Menarche at age 12. First Full-Term at age 19. Postmenopausal. Maternal cousin had breast cancer, age 60. Maternal aunt had breast cancer, age 60. Risk Values: Florencia 5 year model risk: 1.6%. NCI Lifetime model risk: 3.9%. Prior Study Comparison: 01/12/2018 Bilateral Screening Mammogram, [facility]. 09/17/2020 Bilateral Screening Mammogram, [facility]. 12/13/2021 Bilateral MG 3D screening mammo w/cad, [facility]. Tissue Density: The breast tissue is almost entirely fat. Findings: Analyzed By CAD. There is no suspicious group of microcalcifications or new suspicious mass in either breast. Overall Assessment: Negative, BI-RAD 1 Management: Screening Mammogram of both breasts in [address] [facility] will attempt to contact patient to return for supplemental views and ultrasound if indicated. Patient should continue monthly self-breast exams. A clinical breast exam by your physician is recommended on an annual basis. This exam should not preclude additional follow-up of suspicious palpable abnormalities. Note on Florencia scores and lifetime risk: 1. A Florencia score greater than 3% is considered moderate risk. If this is the case, consider specialist referral to assess eligibility for a risk reducing agent. 2. If overall lifetime risk for the development of breast cancer is 20% or higher, the patient may qualify for future screening with alternating mammogram and breast MRI. Electronically signed and approved by: Mayo Brennan DO
== END | disposition home or self-care (01) ==
LOC: RADMAMWWP 12:19
PROVIDERS: ATTEND Family Medicine
DX: Z12.31 Encounter for screening mammogram for malignant neoplasm of breast (principal); Z78.0 Asymptomatic menopausal state; Z80.3 Family history of malignant neoplasm of breast
CPT/HCPCS: 77063; 77067

== ENCOUNTER 2023-02-08 09:13 | Day surgery (SDC) | payer MEDICARE, OTHER ==
[~2023-02-08 09:13] MED LIST changes: -ACETAMINOPHEN TAB 500 MG TAB PO PRN; -DEXAMETHASONE SOD PHOSPHATE 4 MG/ML 1 ML VIAL IV ONE; -GABAPENTIN 300 MG CAP PO PRN; -LIDOCAINE 1% (10MG/ML) FOR IV START INTRADERMA PRN; -MELOXICAM 7.5 MG TAB PO PRN; -MIDAZOLAM 2 MG/2 ML VIAL IV PRN; -ONDANSETRON 4 MG/2 ML VIAL IVP PRN; -TRANEXAMIC ACID IN NACL,ISO-OS 1,000 MG in SALINE 1 100ML.BAG IVPB PRN
[2023-02-08 09:40] VITALS: TEMP 97
[2023-02-08] MEDS ORDERED: LIDOCAINE 2% INJ 20 MG/ML (2 ML VIAL) ONE (10:20)
[2023-02-08] MEDS ORDERED: PROPOFOL 10 MG/ML 20 ML VIAL IV ONE (10:20)
--- NOTE | 2023-02-08 10:38 | P.PCN ---
Date of Procedure: 02/08/23 Procedure(s) Performed: BRIEF HISTORY: Patient is a 71-year-old pleasant white female scheduled for an elective colonoscopy as a part of screening for colon cancer. PROCEDURE PERFORMED: Colonoscopy. PREOPERATIVE DIAGNOSIS: Screening for colon cancer. IV sedation per Anesthesia. PROCEDURE: After informed consent was obtained, the patient, was brought into the endoscopy unit. IV sedation was administered by Anesthesia under continuous monitoring. Digital rectal examination was normal. Initially the Olympus CF-160 flexible video colonoscope was then inserted in the rectum, gradually advanced into the cecum without any difficulty. Careful examination was performed as the scope was gradually being withdrawn. Ileocecal valve and the appendiceal orifice were visualized and appeared normal. Prep was excellent. Mucosa of the cecum, ascending colon, transverse colon, descending colon, sigmoid colon, and rectum appeared normal. Scattered small diverticulosis. Retroflexion was performed in the rectum and no lesions were seen. The patient tolerated the procedure well. IMPRESSION: Normal-appearing colon from rectum to cecum no evidence of colorectal neoplasia Scattered sigmoid diverticulosis . RECOMMENDATIONS: Findings of this examination were discussed with the patient as well as her family. She was advised to have a repeat screening colonoscopy in 10 years..
[2023-02-08 10:44] VITALS: RESP 16
[2023-02-08 11:06] VITALS: BP 143/83; PULSE 73
== END 2023-02-08 11:21 | disposition home or self-care (01) ==
LOC: ORWHC2ENDO 09:13
PROVIDERS: ATTEND Internal Medicine Gastroenterology
DX: Z12.11 Encounter for screening for malignant neoplasm of colon (principal); Z88.8 Allergy status to other drugs, medicaments and biological substances; Z88.0 Allergy status to penicillin; F32.9 Major depressive disorder, single episode, unspecified; F41.9 Anxiety disorder, unspecified; Z79.899 Other long term (current) drug therapy
CPT/HCPCS: J2704; J2001; G0121

== ENCOUNTER → 2023-10-11 | Outpatient (CLI) | payer MEDICARE, OTHER ==
--- NOTE | 2023-10-11 20:33 | MR ---
EXAMINATION TYPE: MR lumbar spine wo con DATE OF EXAM: 10/11/2023 COMPARISON: None HISTORY: 73-year-old female M54.51, M48.062, Low back pain into left buttocks TECHNIQUE: Multiplanar, multisequence images of the lumbar spine were acquired without IV contrast. FINDINGS: There is a accentuated lower thoracic kyphosis with some ligamentum flavum thickening and mild cutting machine operator ior disc bulge at T10-T11. This mildly narrows the spinal canal slightly flattening the ventral cord. There is a 2.0 cm long and 2 mm wide prominence to the central canal or syrinx just below this level T11. Otherwise, conus medullaris is normal. There is [id number] degenerative disc disease mid to lower lumbar spine were desiccated and bul ging discs. More moderate to severe degenerative disc disease T12-L1 with associated edematous Modic type I endplate change. Hypertrophic facet arthropathy is present with ligamentum flavum thickening. Degenerative grade 1 retrolisthesis T12-L1 and L2-L3. Degenerative grade 1 anterolisthesis L3-L4. Remaining alignment is maintained. Heterogeneous right marrow hyperplasia but otherwise without suspicious bone marrow placement. At L4-L5, there is degenerative grade 1 anterolisthesis with hypertrophic facet arthropathy and ligam entum flavum thickening. Along with disc bulge, there is focal moderate to severe spinal canal stenos is with [id number] bilateral neuroforaminal stenosis. Bulging disks impress on to the ventral thecal sac at multiple additional levels without significant spinal canal stenosis. On the right, changes resulted in moderate foraminal stenosis at L2-L3 and mild to moderate at L3-L4 and L4-L5. On the left, changes resulting in mild to moderate neural foraminal stenosis at L2-L3 and L4-L5. No prevertebral or paravertebral soft tissue modality seen. IMPRESSION: 1. Mild to moderate degenerative disc disease throughout along with hypertrophic facet arthropathy. L igamentum flavum thickening particularly in the mid to lower lumbar spine. 2. Changes result in degenerative grade 1 retrolisthesis at T12-L1 and L2-L3. Degenerative grade 1 an terolisthesis at L3-L4. 3. At L4-L5, there is a focal moderate to severe spinal canal stenosis with mild to moderate bilatera l neuroforaminal stenosis. 4. At T10-T11, there is an accentuated thoracic kyphosis with posterior disc bulge and ligamentum fla vum thickening. This mildly narrows the spinal canal abutting and slightly flattening the ventral cor d. There is a 2 cm long dilatation of the central canal versus tiny syrinx just below this level. Pos sibly related to some dynamic compressibility or, more likely, old injury to the cord. 5. Additional variable mild to moderate neural foraminal stenoses as outlined above, moderate on the right at L2-L3.
== END | disposition home or self-care (01) ==
LOC: RADMRIMAIN 08:49
PROVIDERS: ATTEND Physical Medicine & Rehabilitation
DX: M47.816 Spondylosis without myelopathy or radiculopathy, lumbar region (principal); M99.73 Connective tissue and disc stenosis of intervertebral foramina of lumbar region; M24.28 Disorder of ligament, vertebrae; M48.062 Spinal stenosis, lumbar region with neurogenic claudication; M40.204 Unspecified kyphosis, thoracic region; M43.15 Spondylolisthesis, thoracolumbar region; M51.35 Other intervertebral disc degeneration, thoracolumbar region
CPT/HCPCS: 72148

== ENCOUNTER → 2023-12-18 | Outpatient (CLI) | payer MEDICARE, OTHER ==
--- NOTE | 2023-12-20 10:33 | MM ---
Reason for Exam: Screening (asymptomatic). Last mammogram was performed 1 year(s) and 1 month(s) ago. Patient History: Menarche at age 12. First Full-Term at age 19. Postmenopausal. Maternal cousin had breast cancer, age 60. Maternal aunt had breast cancer, age 60. Risk Values: Florencia 5 year model risk: 1.6%. NCI Lifetime model risk: 3.7%. Prior Study Comparison: 07/04/2017 Screening Mammogram, [facility]. 01/12/2018 Bilateral Screening Mammogram, [facility]. 09/17/2020 Bilateral Screening Mammogram, [facility]. 12/13/2021 Bilateral MG 3D screening mammo w/cad, [facility]. 12/14/2022 Bilateral MG 3D screening mammo w/cad, [facility]. Tissue Density: There are scattered areas of fibroglandular density. Findings: Analyzed By CAD. There is no suspicious group of microcalcifications or new suspicious mass in either breast. Benign calcifications. Overall Assessment: Benign, BI-RAD 2 Management: Screening Mammogram of both breasts in 1 year. . Patient should continue monthly self-breast exams. A clinical breast exam by your physician is recommended on an annual basis. This exam should not preclude additional follow-up of suspicious palpable abnormalities. Note on Florencia scores and lifetime risk: 1. A Florencia score greater than 3% is considered moderate risk. If this is the case, consider specialist referral to assess eligibility for a risk reducing agent. 2. If overall lifetime risk for the development of breast cancer is 20% or higher, the patient may qualify for future screening with alternating mammogram and breast MRI. Electronically signed and approved by: Nathan Leung M.D. Radiologis
== END | disposition home or self-care (01) ==
LOC: RADMAMWWP 09:56
PROVIDERS: ATTEND Family Medicine
DX: Z12.31 Encounter for screening mammogram for malignant neoplasm of breast (principal); Z78.0 Asymptomatic menopausal state; Z80.3 Family history of malignant neoplasm of breast
CPT/HCPCS: 77063; 77067

== ENCOUNTER → 2025-01-16 | Outpatient (CLI) | payer MEDICARE, OTHER ==
--- NOTE | 2025-01-17 16:41 | MM ---
Reason for Exam: Screening (asymptomatic). Last screening mammogram was performed 12 month(s) ago. Patient History: Menarche at age 12. First Full-Term at age 19. Postmenopausal. Maternal cousin had breast cancer, age 60. Maternal aunt had breast cancer, age 60. Risk Values: Florencia 5 year model risk: 1.6%. NCI Lifetime model risk: 3.4%. Prior Study Comparison: 12/13/2021 Bilateral MG 3D screening mammo w/cad, [facility]. 12/14/2022 Bilateral MG 3D screening mammo w/cad, [facility]. 12/18/2023 Bilateral MG 3D screening mammo w/cad, [facility]. Tissue Density: There are scattered areas of fibroglandular density. Findings: Analyzed By CAD. There is no suspicious group of microcalcifications or new suspicious mass in either breast. Overall Assessment: Negative, BI-RAD 1 Management: Screening Mammogram of both breasts in 1 year. . Patient should continue monthly self-breast exams. A clinical breast exam by your physician is recommended on an annual basis. This exam should not preclude additional follow-up of suspicious palpable abnormalities. Note on Florencia scores and lifetime risk: 1. A Florencia score greater than 3% is considered moderate risk. If this is the case, consider specialist referral to assess eligibility for a risk reducing agent. 2. If overall lifetime risk for the development of breast cancer is 20% or higher, the patient may qualify for future screening with alternating mammogram and breast MRI. [facility], , 01/17/2025 4:38 PM. Electronically signed and approved by: Galo Yang M.D. Radiologist
== END | disposition home or self-care (01) ==
LOC: RADMAMWWP 15:15
PROVIDERS: ATTEND Family Medicine
DX: Z12.31 Encounter for screening mammogram for malignant neoplasm of breast (principal); R92.323 Mammographic fibroglandular density, bilateral breasts; Z78.0 Asymptomatic menopausal state; Z80.3 Family history of malignant neoplasm of breast
CPT/HCPCS: 77063; 77067